=== PATIENT | male | born 1935 | race Caucasian/White ===

== ENCOUNTER 2019-12-29 15:01 | Inpatient (IN) ==
--- NOTE | 2019-12-29 15:21 | Emergency Department Note ---
Impression & Plan SEN (acute kidney injury), Acute hypotension, Weakness, Dizzy Allergies Allergies Allergy/AdvReac Type Severity Reaction Status Date / Time No Known Allergies Allergy Verified 12/29/19 15:49 [id number] Allergy Unknown Unknown Uncoded 12/29/19 15:49 Home Meds Home Medications Medication Instructions Recorded Confirmed aspirin [Aspirin Low Dose] 81 mg PO DAILY 04/15/19 12/29/19 atorvastatin 80 mg PO HS 04/15/19 12/29/19 dorzolamide-timolol 1 drp OPB BID 04/15/19 12/29/19 gabapentin 300 mg PO HS 04/15/19 12/29/19 latanoprost 1 drp OPB HS 04/15/19 12/29/19 lisinopril 5 mg PO PM 04/15/19 12/29/19 metformin 1,000 mg PO QAM 04/15/19 12/29/19 metoprolol succinate 25 mg PO DAILY 04/15/19 12/29/19 [id number] acid-lutein [Centrum 1 tab PO DAILY 04/15/19 12/29/19 Silver] tamsulosin 0.4 mg PO DAILY 04/15/19 12/29/19 cholestyramine (with sugar) 4 g PO BID 12/29/19 12/29/19 ezetimibe 10 mg PO DAILY 12/29/19 12/29/19 metformin 500 mg PO QPM 12/29/19 12/29/19 nitroglycerin 0.4 mg SUBLINGUAL UD 12/29/19 12/29/19 omeprazole 20 mg PO DAILY 12/29/19 12/29/19 ED Provider Note NAME: Shabana MOORE AGE: 84 SEX: M : 1935 ARRIVES VIA: Walk-In INFORMANT: Patient ED PROVIDER(S): Zheng Polanco DO CHIEF COMPLAINT: Weakness and lightheadedness HPI: Patient is an 84-year-old male referred in by his PCP for acute kidney injury. Patient notes that he has not been eating or drinking much for the past week between this past to Thursday. The symptoms started on Thursday with persistent diarrhea about 6-10 times a day that finally resolved this past Thursday night into Thursday. He had some mild abdominal achiness throughout this time but that has since resolved. He notes the diarrhea is gone. He has no belly pain. He does admit to some dizziness and lightheadedness. No chest pain or shortness of breath. No other exacerbating or remitting factors. Denies any recent trips or travel. No cough runny nose or sore throat. ROS: See above HPI for pertinent positives & negatives. A total of 10 systems reviewed and were otherwise negative. PAST MEDICAL HISTORY:See Below PAST SURGICAL HISTORY:See Below FAMILY HISTORY:See Below SOCIAL HISTORY:See Below HOME MEDICATIONS:See Below ALLERGIES:See Below VITALS:See Below PHYSICAL EXAMINATION: GENERAL: Sitting up in bed, alert, well appearing, well nourished, no distress, non-toxic EYE EXAM: normal conjunctiva. OROPHARYNX: no exudate, no erythema, lips, buccal mucosa, and tongue normal and mucous membranes are moist NECK: supple, no nuchal rigidity, no adenopathy, non-tender LUNGS: Clear to auscultation. Normal chest wall mechanics HEART: no murmurs, S1 normal and S2 normal ABDOMEN: abdomen soft, non-tender, normo-active bowel sounds, no masses, no rebound or guarding. BACK: Back is symmetrical on inspection and there is no deformity, no midline tenderness, no CVA tenderness. SKIN: no rashes and no bruising UPPER EXTREMITIES: upper extremities are grossly normal. LOWER EXTREMITIES: No pitting edema. NEURO EXAM: Normal sensorium, cranial nerves II-XII grossly intact, normal speech, no gross weakness of arms, no gross weakness of legs. MEDICAL DECISION MAKING: Patient is an 84-year-old male who was referred in by his PCP for an elevated creatinine. He notes he has been having diarrhea since this past Thursday to Thursday going 6-10 times a day. Not eating or drinking much. He has no belly pain. He is still urinating. Bladder scan performed by myself at bedside shows decompressed bladder. IV was established blood work was obtained. Labs show no significant leukocytosis or anemia. INR was unremarkable. BMP with a creatinine of 8.59. Potassium was appropriate. Glucose was slightly elevated. LFTs bilirubin troponin was negative. Lipase unremarkable. Patient was given 2 L IV fluids. Discussed with the hospitalist admitted for acute kidney injury. Triage Nursing notes reviewed. Prior medical records reviewed Vital Signs: reviewed and remarkable for no significant abnormalities Differential diagnosis: Differential diagnosis includes etiologies such as benign positional vertigo, dehydration, hypovolemia, anemia, tumor, infection, hypoglycemia, electrolyte abnormalities, cardiac sources, intracerebral event, toxicologic, neurological, as well as others were entertained. ER treatment provided: See below Diagnostics interpreted by me: ECG: Sinus rhythm rate 82 Normal axis Normal QTC Inferior Q waves Cardiac Monitoring: Sinus rhythm rate 81 Laboratory studies: As stated above and show below. Imaging studies: Portable AP upright 1 view of the chest shows no focal infiltrate or pneumothorax with likely atelectasis in the lower lobes Consultation(s): Discussed with Radha from [facility] service ED COURSE: Procedures: none Critical Care: None Past Med/Surg History Social History Preferred Language: Kazakh Current Living Situation: Family Feels Safe at Home: Yes Smoking Status: Former smoker Results & Data (ED) Vital Signs Vital Signs - 24 hr 12/29/19 15:05 12/29/19 15:17 12/29/19 15:18 Temperature 36.5 C Temperature Source Oral Pulse Rate 69 67 68 Pulse Rate from SpO2 Sensor Pulse Rhythm Regular Respiratory Rate 20 22 20 Blood Pressure 84/54 L 100/51 L Blood Pressure Mean 64 60 Pulse Oximetry 97 99 Oxygen Delivery Method Room Air Room Air Sepsis Recent Fever Within 48 Hours No Sepsis New/Unexplained Change in Mental Status No Sepsis Action Taken by Nursing No Action Required 12/29/19 15:20 12/29/19 15:30 12/29/19 16:00 Temperature Temperature Source Pulse Rate 66 66 72 Pulse Rate from SpO2 Sensor 66 73 Pulse Rhythm Respiratory Rate 20 23 21 Blood Pressure 110/50 L Blood Pressure Mean 70 Pulse Oximetry 99 96 Oxygen Delivery Method Sepsis Recent Fever Within 48 Hours Sepsis New/Unexplained Change in Mental Status Sepsis Action Taken by Nursing 12/29/19 16:30 12/29/19 17:00 Temperature Temperature Source Pulse Rate 78 83 Pulse Rate from SpO2 Sensor 78 82 Pulse Rhythm Respiratory Rate 24 22 Blood Pressure Blood Pressure Mean Pulse Oximetry 95 98 Oxygen Delivery Method Sepsis Recent Fever Within 48 Hours Sepsis New/Unexplained Change in Mental Status Sepsis Action Taken by Nursing Laboratory Data Result diagrams: 12/29/19 15:25 12/29/19 15:25 Lab Results 12/29/19 12/29/19 12/29/19 Range/Units 15:25 15:25 15:25 WBC 8.89 (4.8-10.8) K/uL RBC 4.41 L (4.7-6.1) M/uL Hgb 14.0 (14.0-18.0) g/dL Hct 41.6 L (42-52) % MCV 94.3 (80-100) fL MCH 31.7 (25-34) pg MCHC 33.7 (32-36) g/dL RDW Std Deviation 45.1 (36.4-46.3) fL RDW Coeff of Deion 13.0 (11.5-14.5) % Plt Count 275 (130-400) K/uL MPV 9.7 (7.4-10.4) fL Immature Gran % (Auto) 0.3 % Neut % (Auto) 64.2 % Lymph % (Auto) 19.0 % [place] % (Auto) 9.7 % Eos % (Auto) 6.0 % Baso % (Auto) 0.8 % Immature Gran # (Auto) 0.03 H (0.00-0.02) K/uL Neut # (Auto) 5.71 (1.4-6.5) K/uL Lymph # (Auto) 1.69 (1.2-3.4) K/uL [place] # (Auto) 0.86 H (0.11-0.59) K/uL Eos # (Auto) 0.53 H (0-0.5) K/uL Baso # (Auto) 0.07 (0-0.2) K/uL PT 11.8 (9.0-12.0) Seconds INR 1.1 (0.9-1.1) APTT 26.9 (21.0-31.0) Seconds PTT Ratio 1.0 VBG pH (7.36-7.41) VBG pCO2 (38-50) mmHg VBG pO2 mmHg VBG HCO3 mmol/L VBG O2 Saturation % VBG Base Excess mEq/L Barometric Pressure mm/Hg Sodium 137 (136-145) mmol/L Potassium 4.5 (3.5-5.1) mmol/L Chloride 107 (98-107) mmol/L Carbon Dioxide 20 L (21-32) mmol/L Anion Gap 10.0 (3-11) BUN 57 H (7-18) mg/dl Creatinine 8.59 H* (0.6-1.4) mg/dl Est Cr Clr Drug Dosing 6.2 ml/min Est GFR ( Amer) 6.0 Est GFR (Non-Af Amer) 5.2 BUN/Creatinine Ratio 6.7 L (10-20) Glucose 135 H (70-99) mg/dl Calcium 8.9 (8.5-10.1) mg/dl Phosphorus (2.5-4.9) mg/dl Magnesium (1.8-2.4) mg/dl Total Bilirubin 0.6 (0.2-1) mg/dl AST 19 (15-37) U/L ALT 27 (12-78) U/L Alkaline Phosphatase 108 (45-117) U/L Troponin I < 0.015 (0-0.045) ng/ml Total Protein 6.8 (6.4-8.2) gm/dl Albumin 3.0 L (3.4-5.0) gm/dl Globulin 3.8 (2.5-4.0) gm/dl Albumin/Globulin Ratio 0.8 L (0.9-2) Lipase 181 (73-393) U/L 12/29/19 12/29/19 Range/Units 15:25 17:26 WBC (4.8-10.8) K/uL RBC (4.7-6.1) M/uL Hgb (14.0-18.0) g/dL Hct (42-52) % MCV (80-100) fL MCH (25-34) pg MCHC (32-36) g/dL RDW Std Deviation (36.4-46.3) fL RDW Coeff of Deion (11.5-14.5) % Plt Count (130-400) K/uL MPV (7.4-10.4) fL Immature Gran % (Auto) % Neut % (Auto) % Lymph % (Auto) % [place] % (Auto) % Eos % (Auto) % Baso % (Auto) % Immature Gran # (Auto) (0.00-0.02) K/uL Neut # (Auto) (1.4-6.5) K/uL Lymph # (Auto) (1.2-3.4) K/uL [place] # (Auto) (0.11-0.59) K/uL Eos # (Auto) (0-0.5) K/uL Baso # (Auto) (0-0.2) K/uL PT (9.0-12.0) Seconds INR (0.9-1.1) APTT (21.0-31.0) Seconds PTT Ratio VBG pH 7.28 L (7.36-7.41) VBG pCO2 37 L (38-50) mmHg VBG pO2 22 mmHg VBG HCO3 17 mmol/L VBG O2 Saturation < 60.0 % VBG Base Excess -9.4 mEq/L Barometric Pressure 726.8 mm/Hg Sodium (136-145) mmol/L Potassium (3.5-5.1) mmol/L Chloride (98-107) mmol/L Carbon Dioxide (21-32) mmol/L Anion Gap (3-11) BUN (7-18) mg/dl Creatinine (0.6-1.4) mg/dl Est Cr Clr Drug Dosing ml/min Est GFR ( Amer) Est GFR (Non-Af Amer) BUN/Creatinine Ratio (10-20) Glucose (70-99) mg/dl Calcium (8.5-10.1) mg/dl Phosphorus 4.9 (2.5-4.9) mg/dl Magnesium 1.6 L (1.8-2.4) mg/dl Total Bilirubin (0.2-1) mg/dl AST (15-37) U/L ALT (12-78) U/L Alkaline Phosphatase (45-117) U/L Troponin I (0-0.045) ng/ml Total Protein (6.4-8.2) gm/dl Albumin (3.4-5.0) gm/dl Globulin (2.5-4.0) gm/dl Albumin/Globulin Ratio (0.9-2) Lipase (73-393) U/L Administered Medications Discontinued Medications Sodium Chloride (Nss 1000ml) 2,000 mls @ 999 mls/hr IV .Q2H1M DIEGO Stop: 12/29/19 17:30 Last Infusion: 12/29/19 17:33 Dose: 0 mls/hr Documented by: [id number] Admin: 12/29/19 15:31 Dose: 999 mls/hr Documented by: [id number] Discharge Plan Visit Data Chief Complaint: Abnormal Labs/Diagnostic Testing Stated Complaint: KIDNEY PROBLEMS, SENT BY FOR MEDS ED Provider: Zheng Polanco Discharge Problem: SEN (acute kidney injury), Acute hypotension, Weakness, Dizzy Forms Stand Alone Forms: My [facility] Prescriptions Prescriptions: No Action latanoprost 0.005 % drops 1 drp OPB HS RF: 0 metformin 500 mg tablet 1,000 mg PO QAM RF: 0 atorvastatin 80 mg tablet 80 mg PO HS RF: 0 aspirin [Aspirin Low Dose] 81 mg Tablet,Delayed Release (Dr/Ec) 81 mg PO DAILY RF: 0 tamsulosin 0.4 mg capsule 0.4 mg PO DAILY RF: 0 dorzolamide-timolol 22.3-6.8 mg/mL drops 1 drp OPB BID RF: 0 lisinopril 5 mg tablet 5 mg PO PM RF: 0 gabapentin 100 mg capsule 300 mg PO HS RF: 0 metoprolol succinate 25 mg tablet extended release 24 hr 25 mg PO DAILY RF: 0 Centrum Silver 400-250 mcg Tablet,Chewable 1 tab PO DAILY RF: 0 metformin 500 mg Tablet 500 mg PO QPM RF: 0 omeprazole 20 mg capsule,delayed release(DR/EC) 20 mg PO DAILY RF: 0 ezetimibe 10 mg tablet 10 mg PO DAILY RF: 0 nitroglycerin 0.4 mg tablet, sublingual 0.4 mg sublingual UD RF: 0 cholestyramine (with sugar) 4 gram powder in packet 4 g PO BID RF: 0
[2019-12-29] MEDS ORDERED: SODIUM CHLORIDE 0.9% 1000ML 2,000 ML IV SCH (15:30)
[2019-12-29 15:34] LABS: Basophils # (auto) 0.07 K/uL (0-0.2); Basophils % (auto) 0.8 %; Eosinophils # (auto) 0.53 K/uL (0-0.5); Hematocrit (blood only) 41.6 % (42-52); Immature Granulocytes # (auto) 0.03 K/uL (0.00-0.02); Immature Granulocytes % (auto) 0.3 %; Lymphocytes # (auto) 1.69 K/uL (1.2-3.4); Mean Corpuscular Hemoglobin 31.7 pg (25-34); Mean Corpuscular Hgb Conc 33.7 g/dL (32-36); Mean Corpuscular Volume 94.3 fL (80-100); Mean Platelet Volume 9.7 fL (7.4-10.4); Monocytes # (auto) 0.86 K/uL (0.11-0.59); Monocytes % (auto) 9.7 %; Neutrophils # (auto) 5.71 K/uL (1.4-6.5); Neutrophils % (auto) 64.2 %; Platelet Count 275 K/uL (130-400); RDW Standard Deviation 45.1 fL (36.4-46.3); Red Blood Count 4.41 M/uL (4.7-6.1); White Blood Count 8.89 K/uL (4.8-10.8)
[2019-12-29 15:45] LABS: INR 1.1 (0.9-1.1); Partial Thromboplastin Time 26.9 Seconds (21.0-31.0); Prothrombin Time 11.8 Seconds (9.0-12.0)
--- NOTE | 2019-12-29 15:51 | XRay Report ---
SINGLE VIEW CHEST CLINICAL HISTORY: Atypical chest pain. FINDINGS: An AP, portable, upright chest radiograph is compared to study dated 04/15/2019. The examina tion is degraded by portable technique and patient rotation. The heart is mildly enlarged noting at herosclerotic calcification of the thoracic aorta. Chronic interstitial thickening is similar to prev ious. Foci of scarring/atelectasis are noted in both lungs. Dependent airspace opacities are present at both lung bases. No large pleural effusion or pneumothorax is seen. The skeletal structures are os teopenic. The bony thorax is grossly intact. IMPRESSION: 1. Cardiomegaly without radiographic evidence of congestive failure. 2. There are bibasilar airspace opacities which likely represent scarring/atelectasis. Correlate clin ically for evidence of a superimposed infectious/inflammatory pneumonitis. ACT 112: Negative or not required by law. Electronically signed by: Anibal Todd M.D. 12/29/2019 3:49 PM
--- NOTE | 2019-12-29 15:52 | Electrocardiogram Report ---
Test Reason : Blood Pressure : / mmHG Vent. 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
[2019-12-29 16:01] LABS: Alanine Aminotransferase 27 U/L (12-78); Albumin Globulin Ratio 0.8 (0.9-2); Alkaline Phosphatase 108 U/L (45-117); Aspartate Aminotransferase 19 U/L (15-37); BUN Creatinine Ratio 6.7 (10-20); Bilirubin,Total 0.6 mg/dl (0.2-1); Blood Urea Nitrogen 57 mg/dl (7-18); Calcium 8.9 mg/dl (8.5-10.1); Carbon Dioxide 20 mmol/L (21-32); Chloride 107 mmol/L (98-107); Creatinine Clr Calc Pharmacy 6.2 ml/min; Est GFR (Non-African American) 5.2; Globulin 3.8 gm/dl (2.5-4.0); Glucose 135 mg/dl (70-99); Lipase 181 U/L (73-393); Potassium 4.5 mmol/L (3.5-5.1); Sodium 137 mmol/L (136-145); Total Protein 6.8 gm/dl (6.4-8.2); Troponin I < 0.015 ng/ml (0-0.045)
[2019-12-29 17:10] LABS: Magnesium 1.6 mg/dl (1.8-2.4); Phosphorus 4.9 mg/dl (2.5-4.9)
[2019-12-29 17:36] LABS: Base Excess VBG -9.4 mEq/L; HCO3 VBG 17 mmol/L; Oxygen Saturation VBG < 60.0 %; PCO2 VBG 37 mmHg (38-50); PO2 VBG 22 mmHg; pH VBG 7.28 (7.36-7.41)
--- NOTE | 2019-12-29 17:50 | History & Physical Report ---
Date of Service December 29, 2019 Assessment & Plan (1) SEN (acute kidney injury): Pt is 84 y/o M with PMH CKD III, HTN, dyslipidemia, CAD, DM II, BPH, GERD presented to ER for abnormal renal functions. Patient with diarrhea x1 week. 12/27/2019 outpatient labs with BUN: 30, Cr: 3.7, GFR 14. Repeat labs today 12/29/2019 with BUN: 54, Cr: 8.4, GFR 5.3 (03/2019: BUN: 17, Cr: 1.1, GFR>60) In ER pt afebrile, P: 69, R: 20, BP: 84/54 up to 100/51, 97% on RA. No leukocytosis. K: 4.5, BUN: 57, Cr: 8.5, GFR: 5.2 SEN on CKD III in setting of diarrhea x1 week, decreased oral intake, dehydration, metformin and lisinopril use -Obtain VBG -Obtain renal US -Obtain urinalysis -Pt clinically dehydrated on exam -In ER given 2L NSS -IVF -Monitor I's and O's -Hold metformin, lisinopril, gabapentin -Avoid other nephrotoxic agents -Monitor renal functions -Nephrology consult, Dr John aware (2) Diarrhea: Diarrhea x1 week. Was started on Questran twice daily 2 days ago with no further episodes of diarrhea. No recent antibiotic use, recent travel, recent ill contacts. No fever, chills, abdominal pain -Monitor, if recurrent diarrhea obtain C. difficile, stool studies -Clear liquid diet for now (3) Type 2 diabetes mellitus: A1c: 6.3 on 10/03/2019 -Hold metformin -NovoLog sliding scale per protocol -A1c in a.m. (4) HTN (hypertension): Initially hypotensive in ER 84/54 up to 100/50 after 2 liters NSS -Monitor BP -Hold lisinopril as above -Continue metoprolol with holding parameters (5) Dyslipidemia: -Continue atorvastatin, Zetia (6) ASCVD (arteriosclerotic cardiovascular disease): History [place] status post PCI 1997. No chest pain. EKG without acute changes -Continue aspirin, atorvastatin, metoprolol (7) BPH (benign prostatic hyperplasia): -Hold Flomax for now with creatinine clearance of 6 DVT Prophylaxis -Heparin SQ Conditional code- wants chest compressions but no intubation or mechanical ventilation as per discussion with pt Follows with Dr Rodriguez for routine care Pt was seen and care coordinated with Dr Scott. See addendum History of Present Illness Chief Complaint: Abnormal renal functions Primary Care Provider: Jono Rodriguez MD Pt is 84 y/o M with PMH CKD III, HTN, dyslipidemia, CAD, DM II, BPH, GERD presented to ER for abnormal renal functions. Patient with diarrhea x1 week. Reports had at least 3 to sometimes greater than 6 episodes diarrhea a day. He has had decreased oral intake. Was seen at PCPs office 12/27/2019 and patient wa s started on Questran twice daily and had outpatient labs with BUN: 30, Cr: 3.7, GFR 14. Patient had repeat labs today 12/29/2019 with BUN: 54, Cr: 8.4, GFR 5.3 and patient was referred to ER for further evaluation. Patient states that he did not have any diarrhea yesterday or today. States that yesterday he had a little ice tea, [place]. Today he had 1 can of diet soda and a half a cup of coffee. Had some lightheadedness this morning with standing. Patient states last week had some abdominal bloating and lower abdominal discomfort however that has since resolved. Reports that has been having decreased urination, patient unsure if he urinated today. Denies any vomiting, fever, chills. Denies any recent antibiotic use, recent travel, ill contacts. Has municipal water supply. Denies diaphoresis, hematochezia, melena, JARQUIN, syncope, vision changes, neck pain, CP, SOB, orthopnea, palpitations, cough, sore throat, choking, otalgia, rhinorrhea, paresthesias, weakness, extremity weakness, extremity edema, rashes, dysuria, hematuria. Allergies Allergy/AdvReac Type Severity Reaction Status Date / Time No Known Allergies Allergy Verified 12/29/19 15:49 Home Medications Home Medications Medication Instructions Recorded Confirmed Type aspirin [Aspirin Low Dose] 81 mg PO DAILY 04/15/19 12/29/19 History atorvastatin 80 mg PO HS 04/15/19 12/29/19 History dorzolamide-timolol 1 drp OPB BID 04/15/19 12/29/19 History gabapentin 300 mg PO HS 04/15/19 12/29/19 History latanoprost 1 drp OPB HS 04/15/19 12/29/19 History lisinopril 5 mg PO PM 04/15/19 12/29/19 History metformin 1,000 mg PO QAM 04/15/19 12/29/19 History metoprolol succinate 25 mg PO DAILY 04/15/19 12/29/19 History [id number] acid-lutein [Centrum 1 tab PO DAILY 04/15/19 12/29/19 History Silver] tamsulosin 0.4 mg PO DAILY 04/15/19 12/29/19 History cholestyramine (with sugar) 4 g PO BID 12/29/19 12/29/19 History ezetimibe 10 mg PO DAILY 12/29/19 12/29/19 History metformin 500 mg PO QPM 12/29/19 12/29/19 History nitroglycerin 0.4 mg SUBLINGUAL UD 12/29/19 12/29/19 History omeprazole 20 mg PO DAILY 12/29/19 12/29/19 History Past Med/Surg History Medical History (Updated 12/29/19 @ 18:10 by Carlita Salguero PA-C) ASCVD (arteriosclerotic cardiovascular disease) BPH (benign prostatic hyperplasia) Chronic rhinitis (Chronic) CKD (chronic kidney disease), stage III Dyslipidemia GERD (gastroesophageal reflux disease) HTN (hypertension) Old [place] (myocardial infarction) Type 2 diabetes mellitus Surgical History (Updated 12/29/19 @ 17:59 by Carlita Salguero PA-C) History of angioplasty History of cataract surgery History of cholecystectomy Hx of tonsillectomy Family History (Updated 12/29/19 @ 18:00 by Carlita Salguero PA-C) Other Coronary heart disease Diabetes Social History (Updated 12/29/19 @ 18:00 by Carlita Salguero PA-C) Preferred Language: Pashto Current Living Situation: Family Current Living Situation Comment: Lives with sister Feels Safe at Home: Yes Smoking Status: Former smoker Hx Alcohol Use: No Hx Substance Use: No Review of Systems Review of Systems: All systems reviewed & are unremarkable except as noted in HPI & below Physical Exam Physical Exam: General: no distress, WDWN Head: normocephalic, atraumatic Eyes: PERRL, EOM's intact, conjunctiva non-injected, anicteric ENT: normal inspection external ears, nose, mucous membranes dry Neck: supple, trachea midline, non-tender Lungs: clear, no respiratory distress, no wheezing/rhonchi/rales CV: RRR, no murmur, no pretibial edema Abd: normal BS, soft, non-tender Ext: no cyanosis, no calf tenderness Neuro: A&O x 3, no focal deficits noted, normal affect Skin: warm, dry Results & Data Results & Data ([facility]) Vital Signs (Past 12 Hours) Vital Signs Temp Pulse Resp BP Pulse Ox 12/29/19 17:00 83 22 98 12/29/19 16:30 78 24 95 12/29/19 16:00 72 21 110/50 L 96 12/29/19 15:30 66 23 99 12/29/19 15:20 66 20 12/29/19 15:18 68 20 99 12/29/19 15:17 67 22 100/51 L 12/29/19 15:05 36.5 C 69 20 84/54 L 97 Laboratory Results Short CBC 12/29/19 12/29/19 Range/Units 15:25 15:25 WBC 8.89 (4.8-10.8) K/uL Hgb 14.0 (14.0-18.0) g/dL Hct 41.6 L (42-52) % Plt Count 275 (130-400) K/uL Magnesium 1.6 L (1.8-2.4) mg/dl BMP 12/29/19 15:25 Sodium 137 Potassium 4.5 Chloride 107 Carbon Dioxide 20 L BUN 57 H Creatinine 8.59 H* Glucose 135 H Calcium 8.9 Cardiac Enzymes 12/29/19 Range/Units 15:25 Troponin I < 0.015 (0-0.045) ng/ml Liver Function 12/29/19 Range/Units 15:25 Total Bilirubin 0.6 (0.2-1) mg/dl AST 19 (15-37) U/L ALT 27 (12-78) U/L Alkaline Phosphatase 108 (45-117) U/L Albumin 3.0 L (3.4-5.0) gm/dl Diagnostic Findings CXR: IMPRESSION: 1. Cardiomegaly without radiographic evidence of congestive failure. 2. There are bibasilar airspace opacities which likely represent scarring/atelectasis. Correlate clinically for evidence of a superimposed infectious/inflammatory pneumonitis. ECG Rate (beats per minute): 65 Rhythm: sinus rhythm Findings: + Q waves (Inferior) Code Status & VTE Plan VTE Prophylaxis Plan VTE Prophylaxis will be ordered: Yes Supervising Physician Co-Signing Physician Notes Attending Addendum: care coordinated with GRETA Dewitt please refer to her notes for full details, I agree with her notes patient seen and examined, records reviewed by myself as well on exam, patient seen resting in bed, comfortable denies SOB, chest pain, palpitations, dizziness no abdominal pain no diarrhea since admission no other symptoms VS noted and reviewed oriented x3, not in distress, speaks in sentences with no effort nor accessory muscle use normal rate, regular rhythm, no murmurs clear breath sounds bilaterally non distended, soft, nontender no bipedal edema, erythema, warmth no neuro deficits WBC 8.8 Hg 14.0 Crea 8.59 Renal US: 1. No hydronephrosis. 2. Enlarged prostate with bladder wall thickening. ASSESSMENT AND PLAN> ACUTE RENAL FAILURE ON CKD 3 likely Prerenal Etiology from Dehydration secondary to Diarrhea in the setting of Metformin, Lisinopril - IV NSS hold Metformin and Lisinopril Nephro consulted DIARRHEA -resolved monitor closely other diagnoses and plan of care as per GRETA Scott MD
[2019-12-29] MEDS ORDERED: GLUCOSE 40% GEL 15 GM TUBE PO PRN (18:41)
[2019-12-29] MEDS ORDERED: GLUCAGON FOR INJ 1 MG VIAL SQ PRN (18:41)
[2019-12-29] MEDS ORDERED: NITROGLYCERIN SL 0.4 MG/TAB TAB SL PRN (18:41)
[2019-12-29] MEDS ORDERED: ACETAMINOPHEN 325 MG TAB PO PRN (18:41)
[2019-12-29] MEDS ORDERED: GLUCOSE 10 TABS/TUBE PO PRN (18:41)
[2019-12-29] MEDS ORDERED: CARBOHYDRATES FOR HYPOGLYCEMIA PO PRN (18:41)
[2019-12-29] MEDS ORDERED: DEXTROSE 50% 50 ML SYRINGE IV PRN (18:41)
--- NOTE | 2019-12-29 18:43 | Ultrasound Report ---
RENAL ULTRASOUND CLINICAL HISTORY: Evaluate for obstruction. COMPARISON STUDY: None. TECHNIQUE: Sonography of the kidneys and the urinary bladder was performed. FINDINGS: This exam is mildly compromised by suboptimal penetration. The right kidney measures 9.6 x 6.1 x 5.8 cm and the left measures 11.2 x 6.1 x 5.9 cm. There is no hydronephrosis. The kidneys are e chogenic. A 1.1 cm left renal cyst is present. The prostate is enlarged. The left ureteral jet was no t visualized. Bladder suboptimally assessed given underdistention. Bladder wall thickening is noted. IMPRESSION: 1. No hydronephrosis. 2. Enlarged prostate with bladder wall thickening. ACT 112: Negative or not required by law. Electronically signed by: Leopoldo Burns M.D. 12/29/2019 6:42 PM
[2019-12-29] MEDS ORDERED: MAGNESIUM SULFATE / D5W 1 GM/100 ML BAG IV ONE (19:00)
[2019-12-29] MEDS: SODIUM CHLORIDE 0.9% 1000ML 1,000 ML IV SCH (19:37)
[2019-12-29] MEDS: ATORVASTATIN 40 MG TAB PO SCH (20:30)
[2019-12-29] MEDS: LATANOPROST 0.005% OP SOLN 2.5 ML BTL OPB SCH (20:30)
[2019-12-29] MEDS: INSULIN ASPART 100 UNITS/ML 3 ML PEN SC SCH (21:35)
[2019-12-29] MEDS ORDERED: HEPARIN SOD 5,000 UNIT/0.5 ML VIAL SQ SCH (22:00)
[2019-12-29 22:41] LABS: Appearance Urine Cloudy (Clear); Bacteria Urine Automated Negative (Negative); Bilirubin Urine Negative (Negative); Blood Urine Trace (Negative); Color Urine Yellow; Epithelial Cell Urine Auto >30 /lpf (0-5); Glucose Urine UA Negative (Negative); Ketones Urine Negative (Negative); Leukocyte Esterase Urine 3+ (Negative); Nitrite Urine Negative (Negative); Protein Urine 1+ (Negative); Specific Gravity Urine 1.019 (1.000-1.030); Urobilinogen Urine Negative (Negative); WBC Urine Automated >30 /hpf (0-5)
[2019-12-29 23:01] LABS: RBC Urine Automated 0-4 /hpf (0-4)
[2019-12-29 23:04] LABS: Amorphous Sediment Urine Present (None Prsent)
[2019-12-29] MEDS ORDERED: SODIUM CHLORIDE 0.9% 500 ML IV SCH (23:15)
[2019-12-30] MEDS: cefTRIAXone SODIUM 1,000 MG in DEXTROSE 5% 50 ML IV SCH (04:18)
[2019-12-30 05:48] LABS: Hematocrit (blood only) 36.2 % (42-52); Hemoglobin 11.9 g/dL (14.0-18.0); Mean Corpuscular Hgb Conc 32.9 g/dL (32-36); Mean Corpuscular Volume 94.3 fL (80-100); Mean Platelet Volume 9.6 fL (7.4-10.4); Platelet Count 198 K/uL (130-400); RDW Standard Deviation 45.3 fL (36.4-46.3); Red Blood Count 3.84 M/uL (4.7-6.1); White Blood Count 6.28 K/uL (4.8-10.8)
[2019-12-30 06:02] LABS: Estimated Average Glucose 134 mg/dl; Hemoglobin A1C 6.3 % (4.5-5.6)
[2019-12-30 06:33] LABS: BUN Creatinine Ratio 7.1 (10-20); Calcium 7.3 mg/dl (8.5-10.1); Creatinine Clr Calc Pharmacy 6.4 ml/min; Est GFR (African American) 6.5; Est GFR (Non-African American) 5.6; Magnesium 1.7 mg/dl (1.8-2.4); Phosphorus 4.3 mg/dl (2.5-4.9); Potassium 4.1 mmol/L (3.5-5.1)
[2019-12-30] MEDS: ASPIRIN 81 MG ECTAB PO SCH (08:25)
[2019-12-30] MEDS: EZETIMIBE 10 MG TABLET PO SCH (08:25)
[2019-12-30] MEDS: METOPROLOL SUCC 25MG EXT REL TAB PO SCH (08:26)
[2019-12-30] MEDS: HEPARIN SOD 5,000 UNIT/0.5 ML VIAL SQ SCH ×2 (08:26→20:26)
[2019-12-30] MEDS: INSULIN ASPART 100 UNITS/ML 3 ML PEN SC SCH ×4 (08:27→20:27)
[2019-12-30] MEDS: SODIUM CHLORIDE 0.9% 1000ML 1,000 ML IV SCH (09:09)
--- NOTE | 2019-12-30 10:22 | Nephrology Consultation ---
Date of Consultation December 30, 2019 Assessment & Plan (1) SEN (acute kidney injury): Patient with acute kidney injury likely due to ischemic ATN in setting of diarrhea for a week. Urinalysis showing over 30 WBCs and granular casts. Creatinine stable at 8 today. No indication for dialysis at the moment. But cannot rule out need for dialysis during this admission. Patient is agreeable t o dialysis if needed. I am optimistic that this should recover. -We will check urine culture -Postvoid bladder scan and if patient is retaining more than 200 mL, consult urology for Murphy catheter placement as patient has a tight foreskin. -Daily BMP -Agree with holding lisinopril and avoid NSAIDs. (2) BPH (benign prostatic hyperplasia): Patient with BPH and renal ultrasound. He will need follow-up with urology outpatient. No hydronephrosis on ultrasound. (3) Diarrhea: Improving with supportive management. No RBCs in the urine or signs of hemolysis to suggest HUS. Continue supportive management. (4) Metabolic acidosis: Due to acute kidney injury. We will give Ringer's lactate instead of normal saline at the same rate. If acidosis is worse tomorrow will change to isotonic bicarbonate infusion. History of Present Illness Reason for Consultation: Acute kidney injury Requesting Physician: Ada Jones DO Attending Physician: dAa Jones DO History of Present Illness This is 84-year-old male with history of type 2 diabetes, coronary disease, hypertension, hyperlipidemia: BPH and normal renal function at baseline with a creatinine of 0.8 in April 2019 was admitted on 12/29/2019 with diarrhea for 1 week found to have acute kidney injury with a creatinine of 8.5. Patient reported 5-6 bowel movements every day for the past 1 week. He was treated with Imodium by Dr. Rodriguez. No vomiting. He denied NSAID use. He does have dysuria now which started since admission. In the emergency room he was found to be hypotensive with a systolic blood pressure in the 80s. He has received up to 4 L of normal saline. Lisinopril was held. His creatinine is 80 this morning with a bicarb of 16. He denies any shortness of breath or cough. He has been on liquid diet. Renal ultrasound showed 9.6 cm right kidney, 11.2 cm left kidney, 1.1 cm left renal cyst and enlarged prostate. Patient is anuric with an 160 mL of urine in the past 24 hours. Allergies Allergy/AdvReac Type Severity Reaction Status Date / Time No Known Allergies Allergy Verified 12/29/19 15:49 Home Medications Home Medications Medication Instructions Recorded Confirmed Type aspirin [Aspirin Low Dose] 81 mg PO DAILY 04/15/19 12/29/19 History atorvastatin 80 mg PO HS 04/15/19 12/29/19 History dorzolamide-timolol 1 drp OPB BID 04/15/19 12/29/19 History gabapentin 300 mg PO HS 04/15/19 12/29/19 History latanoprost 1 drp OPB HS 04/15/19 12/29/19 History lisinopril 5 mg PO PM 04/15/19 12/29/19 History metformin 1,000 mg PO QAM 04/15/19 12/29/19 History metoprolol succinate 25 mg PO DAILY 04/15/19 12/29/19 History [id number] acid-lutein [Centrum 1 tab PO DAILY 04/15/19 12/29/19 History Silver] tamsulosin 0.4 mg PO DAILY 04/15/19 12/29/19 History cholestyramine (with sugar) 4 g PO BID 12/29/19 12/29/19 History ezetimibe 10 mg PO DAILY 12/29/19 12/29/19 History metformin 500 mg PO QPM 12/29/19 12/29/19 History nitroglycerin 0.4 mg SUBLINGUAL UD 12/29/19 12/29/19 History omeprazole 20 mg PO DAILY 12/29/19 12/29/19 History Patient History Medical History (Updated 12/30/19 @ 10:18 by Terrence John MD) ASCVD (arteriosclerotic cardiovascular disease) BPH (benign prostatic hyperplasia) Chronic rhinitis (Chronic) CKD (chronic kidney disease), stage III Dyslipidemia GERD (gastroesophageal reflux disease) HTN (hypertension) Old NH (myocardial infarction) Type 2 diabetes mellitus Surgical History (Updated 12/29/19 @ 17:59 by Carlita Salguero PA-C) History of angioplasty History of cataract surgery History of cholecystectomy Hx of tonsillectomy Family History (Updated 12/29/19 @ 18:00 by Carlita Salguero PA-C) Other Coronary heart disease Diabetes Social History (Updated 12/29/19 @ 18:00 by Carlita Salguero PA-C) Preferred Language: [place] Citizen 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 Ability: Effective 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: No Beliefs That Will Affect Care: None Current Living Situation: Other Current Living Situation Comment: lives with sister Other Information That Helps Us Care for You: No Feels Safe at Home: Yes Safety Concerns: Feels Safe At This Time Smoking Status: Former smoker Do You Dip or Chew Tobacco: No ; Second Hand Exposure: No ; Tobacco Cessation Education Requested by Patient: No Hx Alcohol Use: No Hx Substance Use: No Review of Systems Review of Systems: All systems reviewed & are unremarkable except as noted in HPI & below Physical Exam Physical Exam: General exam: Appears comfortable, no acute distress HEENT: Pupils are equal and reactive to light Neck: No JVD, neck is supple trachea is midline Respiratory system: Clear breath sounds bilaterally. Gastrointestinal: Abdomen is soft, non distended, non tender, bowel sounds are present CVS: Regular rate and rhythm. No murmurs, rubs or gallops Musculoskeletal: No joint or muscle tenderness Extremities: Non tender, no edema, peripheral pulses are present Neuro: Oriented, no tremors, no focal neurological deficits Skin: No rashes Genitourinary: Tight foreskin, unable to retract skin due to pain. Results & Data Vital Signs (Past 12 Hours) Vital Signs Temp Pulse Pulse Resp BP Pulse Ox 12/30/19 08:00 36.4 C L 85 18 98/62 L 94 12/30/19 07:13 85 12/30/19 03:48 36.5 C 87 18 100/64 94 12/29/19 23:45 89 Laboratory Results 12/30/19 05:21 12/29/19 12/29/19 12/29/19 15:25 15:25 15:25 WBC 8.89 RBC 4.41 L MCV 94.3 MCH 31.7 MCHC 33.7 RDW Std Deviation 45.1 RDW Coeff of Deion 13.0 Plt Count 275 MPV 9.7 Phosphorus 4.9 Albumin 3.0 L 12/30/19 12/30/19 05:21 05:21 WBC 6.28 RBC 3.84 L MCV 94.3 MCH 31.0 MCHC 32.9 RDW Std Deviation 45.3 RDW Coeff of Deion 13.0 Plt Count 198 MPV 9.6 Phosphorus 4.3 Albumin
[2019-12-30] MEDS: MAGNESIUM SULFATE / D5W 1 GM/100 ML BAG IV SCH ×2 (10:45→12:32)
[2019-12-30 12:22] LABS: Creatinine Urine Random 58.6 mg/dl; Potassium Random Urine 7.6 mmol/L; Protein Creatinine Ratio Urine 0.8 (0-0.2); Total Protein Urine Random 48.7 mg/dl (0-11.9)
[2019-12-30] MEDS: LACTATED RINGER'S 1,000 ML IV SCH ×2 (13:46→21:58)
--- NOTE | 2019-12-30 13:46 | Hospitalist Progress Note ---
Date of Service December 30, 2019 Assessment & Plan (1) SEN (acute kidney injury): Etiology unclear but likely ATN and/or dehydration 2/2 recent prolonged diarrheal illness per Nephro. Pt is hypotensive and clinical picture is suggestive of him being hypovolemic. Cont IVF and switch to LR. Trend BMP. Urine studies pending. +dysuria and pyuria so urine culture pending and covered empirically with Rocephin. No Pino can be placed, however, he is not incontinent and we care able to track strict I/Os and he is not retaining urine at this point despite poor UOP. (2) Diarrhea: Recent diarrheal illness for 1 week of uncertain etiology. No recent antibiotics or known sick contacts. Afebrile and no reported abdominal pain. Tolerating PO. Stool culture pending. (3) Type 2 diabetes mellitus: At goal, controlled per A1C. Metformin on hold and should probably be discontinued at discharge with kidney function. Cont insulin while hospitalized. (4) HTN (hypertension): hypotensive, cont IVF and holding lisinopril. Likely related to hypovolemic state. (5) ASCVD (arteriosclerotic cardiovascular disease): History MT status post PCI 1997. No chest pain. EKG without acute changes -Continue aspirin, atorvastatin, metoprolol per home regimen (6) BPH (benign prostatic hyperplasia): -Hold Flomax for low GFR (7) DVT prophylaxis: Heparin Conditional Code Dispo-cont hospitalization throughout the week. Discussed the care plan with his sister by phone. 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 No clear etiology of diarrhea-no sick contacts, no recent abx use No abd pain, fevers or chills Tolerating PO well Oliguric but no urinary retention on bladder scan which is 50cc consistently +new dysuria in past 24 hours pino cannot be placed because of anatomic abnormalities, however, no urinary retention and we are able to collect urine (no incontinence) Review of Systems Review of Systems: All systems reviewed & are unremarkable except as noted in Subjective Physical Exam Physical Exam: CONSTITUTIONAL: WNWD, vitals as above, generally well- appearing EYES: normal conjunctivae, no scleral icterus ENT: external ear and nose normal, oropharynx clear RESPIRATORY: clear to auscultation bilaterally, no crackles, rales or wheezes, normal respiratory effort CARDIOVASCULAR: regular rate and rhythm, S1 and 2 heard without murmurs, gallops or rubs, no JVD, no peripheral edema GASTROINTESTINAL: normal bowel sounds, soft, nontender, nondistended MUSCULOSKELETAL: strength 5/5 throughout, head is normocephalic and atraumatic SKIN: warm and dry NEUROLOGIC: CN 2-12 grossly intact, no sensory deficit, normal cognition, normal speech, no gross focal deficits. PSYCHIATRIC: alert cooperative and oriented to person, place and time. Results & Data Results & Data ([facility]) Vital Signs (Past 12 Hours) Vital Signs Temp Pulse Pulse Resp BP Pulse Ox 12/30/19 12:00 36.3 C L 68 18 102/56 L 97 12/30/19 08:00 36.4 C L 85 18 98/62 L 94 12/30/19 07:13 85 12/30/19 03:48 36.5 C 87 18 100/64 94 Laboratory Results Short CBC 12/29/19 12/30/19 Range/Units 15:25 05:21 WBC 8.89 6.28 (4.8-10.8) K/uL Hgb 14.0 11.9 L (14.0-18.0) g/dL Hct 41.6 L 36.2 L (42-52) % Plt Count 275 198 (130-400) K/uL BMP 12/29/19 12/30/19 15:25 05:21 Sodium 137 139 Potassium 4.5 4.1 Chloride 107 113 H Carbon Dioxide 20 L 16 L BUN 57 H 57 H Creatinine 8.59 H* 8.08 H* D Glucose 135 H 97 Calcium 8.9 7.3 L D Cardiac Enzymes 12/29/19 Range/Units 15:25 Troponin I < 0.015 (0-0.045) ng/ml Liver Function 12/29/19 Range/Units 15:25 Total Bilirubin 0.6 (0.2-1) mg/dl AST 19 (15-37) U/L ALT 27 (12-78) U/L Alkaline Phosphatase 108 (45-117) U/L Albumin 3.0 L (3.4-5.0) gm/dl Urine 03/26/20 Range/Units 22:30 Urine Color Yellow Urine Appearance Cloudy A (Clear) Urine pH 5.0 (4.5-7.5) Ur Specific [place] 1.019 (1.000-1.030) Urine Protein 1+ H (Negative) Urine Glucose (UA) Negative (Negative)
[2019-12-30] MEDS: ATORVASTATIN 40 MG TAB PO SCH (20:26)
[2019-12-30] MEDS: LATANOPROST 0.005% OP SOLN 2.5 ML BTL OPB SCH (20:28)
[2019-12-31] MEDS: cefTRIAXone SODIUM 1,000 MG in DEXTROSE 5% 50 ML IV SCH (03:47)
[2019-12-31 06:05] LABS: Hematocrit (blood only) 35.4 % (42-52); Hemoglobin 11.8 g/dL (14.0-18.0); Mean Corpuscular Hemoglobin 31.2 pg (25-34); Mean Corpuscular Hgb Conc 33.3 g/dL (32-36); Mean Corpuscular Volume 93.7 fL (80-100); Mean Platelet Volume 9.9 fL (7.4-10.4); Platelet Count 220 K/uL (130-400); RDW Coefficient of Variation 13.1 % (11.5-14.5); RDW Standard Deviation 44.8 fL (36.4-46.3); Red Blood Count 3.78 M/uL (4.7-6.1)
[2019-12-31 06:44] LABS: BUN Creatinine Ratio 7.1 (10-20); Calcium 7.5 mg/dl (8.5-10.1); Creatinine Clr Calc Pharmacy 5.8 ml/min; Est GFR (African American) 5.6; Est GFR (Non-African American) 4.8; Potassium 4.5 mmol/L (3.5-5.1)
--- NOTE | 2019-12-31 07:46 | XRay Report ---
XR chest 1V portable CLINICAL HISTORY: 84 years-old Male presenting with crackles. TECHNIQUE: Portable upright AP view of the chest was obtained. COMPARISON: 12/29/2019 and 04/15/2019. FINDINGS: Atherosclerosis of the aortic arch. Cardiac silhouette top normal in size. Extensive interstitial pro minence with heterogeneous lung markings and scattered basilar predominant reticular and linear opaci ties. Trace effusion may be present on the right. Osseous structures normal. Upper abdomen normal. IMPRESSION: 1. Interstitial prominence is greater than on prior chest x-ray concerning for developing venolympha tic congestive change. Mild/developing pulmonary edema not excluded. Aspiration or infection also not excluded. Continued follow-up advised. ACT 112: Negative or not required by law. Electronically signed by: Marcos Burnham M.D. 12/31/2019 7:45 AM
[2019-12-31] MEDS: HEPARIN SOD 5,000 UNIT/0.5 ML VIAL SQ SCH (08:16)
[2019-12-31] MEDS: EZETIMIBE 10 MG TABLET PO SCH (08:16)
[2019-12-31] MEDS: ASPIRIN 81 MG ECTAB PO SCH (08:17)
[2019-12-31] MEDS: METOPROLOL SUCC 25MG EXT REL TAB PO SCH (08:17)
[2019-12-31] MEDS: INSULIN ASPART 100 UNITS/ML 3 ML PEN SC SCH (08:18)
--- NOTE | 2019-12-31 09:05 | 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 Note ---
Date of Service: December 31, 2019 Current Inpatient Medications Acetaminophen (Tylenol) 650 mg PO Q4H PRN PRN Reason: Pain or Fever Stop: 01/28/20 18:40 Aspirin (Ecotrin Ectab) 81 mg PO DAILY [place]IEGO Stop: 01/29/20 08:59 Last Admin: 12/31/19 08:17 Dose: 81 mg Documented by: Atorvastatin Calcium (Lipitor) 80 mg PO HS DIEGO Stop: 01/28/20 20:59 Last Admin: 12/30/19 20:26 Dose: 80 mg Documented by: Dextrose (Dextrose 50%) 25 - 50 ml IV UD PRN; Protocol PRN Reason: Hypoglycemia Protocol Stop: 01/28/20 18:40 Ezetimibe (Zetia) 10 mg PO DAILY DIEGO Stop: 01/29/20 08:59 Last Admin: 12/31/19 08:16 Dose: 10 mg Documented by: Glucagon (Glucagen) 1 mg SQ UD PRN; Protocol PRN Reason: Hypoglycemia Protocol Stop: 01/28/20 18:40 Glucose (Dex4 Glucose) 4 - 8 tabs PO UD PRN; Protocol PRN Reason: Hypoglycemia Protocol Stop: 01/28/20 18:40 Glucose (Glucose 40%) 15 - 30 gm PO UD PRN; Protocol PRN Reason: Hypoglycemia Protocol Stop: 01/28/20 18:40 Heparin Sodium (Porcine) (Heparin Sodium (Porcine)) 5,000 units SQ Q12 [place]IEGO Stop: 01/29/20 08:59 Last Admin: 12/31/19 08:16 Dose: 5,000 units Documented by: Ceftriaxone Sodium 1,000 mg/ (Dextrose) 60 mls @ 100 mls/hr IV Q24H [facility]; Protocol Stop: 01/09/20 03:59 Last Infusion: 12/31/19 04:32 Dose: Infused Documented by: Lactated Ringer's (Lr) 1,000 mls @ 125 mls/hr IV .Q8H [facility] Stop: 01/29/20 13:29 Last Infusion: 12/31/19 03:41 Dose: 0 mls/hr Documented by: Insulin Aspart (Novolog Flexpen) 0 units SC ACHS [place] Stop: 01/28/20 20:59 Last Admin: 12/31/19 08:18 Dose: 2 units Documented by: Latanoprost (Xalatan Oph) 1 drops OPB HS [facility] Stop: 01/28/20 20:59 Last Admin: 12/30/19 20:28 Dose: 1 drops Documented by: Metoprolol Succinate (Toprol Xl) 25 mg PO DAILY [place] Stop: 01/29/20 08:59 Last Admin: 12/31/19 08:17 Dose: 25 mg Documented by: Miscellaneous (Carbohydrates For Hypoglycemia) 15 - 30 gm PO UD PRN PRN Reason: Hypoglycemia Protocol Stop: 01/28/20 18:40 Nitroglycerin (Nitrostat) 0.4 mg SL UD PRN PRN Reason: CHEST PAIN Stop: 01/28/20 18:40 TRANSFER SUMMARY: 84-year-old man presented to the ER after outpatient lab work showed a worsening kidney function after a significant diarrheal illness during the prior week. He reported trying Imodium with no effect and was subsequently placed on Questran approximately one day prior to arrival. Diarrhea resolved after admission to the hospital and no stools were available for culture. Initial blood work revealed a normal CBC, a BMP revealing CO2 of 20, BUN 57 and creatinine 8.59. Magnesium was 1.6, troponin was negative, urinalysis was cloudy with 1+ protein, 3+ leukocyte esterase, > 30 WBC/hpf, > 30 epithelial cells/hpf and no bacteria. 1-5 granular casts were seen. He was started on normal saline at 125mls/hr and given approximately 4 L overnight with 160mLs urine output by 7 AM the next morning. He was not demonstrating evidence of volume overload and fluids were switched to LR to avoid worsening of the metabolic acidosis from hyperchloremic fluids. He received an additional 3.2 L overnight with 600mLs output the following 24 hours. On the morning of 12/30 labwork revealed a sodium of 138, chloride 113, CO2 15, BUN 65, creatinine 9.14, mag 2.0. Post void residuals on hospital day 2 were approximately 50 cc per nursing staff. This is increased by hospital day 3 to approximately 200 cc. The patient has known BPH. A renal ultrasound was performed on hospital day 1, revealing no evidence for hydronephrosis and an enlarged prostate with bladder wall thickening. Further urine studies included a urine osmole which was 261, urine creatinine random of 58.6, urine protein random of 48.7, urine sodium random 83, urine potassium random 7.6, urine chloride random 82. FENa was 8.1 consistent with ATN. A Murphy catheter was unable to be placed by nursing staff because of retracted foreskin. This was of less concern on hospital day 2 with low postvoid residuals and no evidence of hydronephrosis on imaging. However, Urology was consulted for Murphy placement on hospital day 3 just prior to departure for [place] with rising PVRs as above. At time of discharge he was mentating and ambulating at baseline and tolerating p.o. He was oxygenating well on room air with no subjective increased shortness of breath. Chest x-ray performed overnight when IV fluids were held revealed vascular congestion consistent with fluid overload. Lungs were clear to auscultation bilaterally on exam. Cardiac exam was normal with no evidence of edema or evidence of heart failure. He was transferred to [place] in stable condition as hemodialysis is not available at this facility. Furthermore, obtaining a hemodialysis catheter at this facility would also be a challenge over the weekend. The situation was discussed with his sister at his request and she agreed with the transfer. Primary care follow-up was recommended 1 week post discharge from the receiving facility. [facility] Dr[facility] dining car is Dr. Chambers. Of note, the case was also discussed with Dr. Kenton Funez, [facility] Increment Manager, who is in agreement with the transfer.
--- NOTE | 2019-12-31 09:23 | Discharge Summary ---
Date of Service December 31, 2019 Admission HPI Per Admitting Provider Pt is 84 y/o M with PMH CKD III, HTN, dyslipidemia, CAD, DM II, BPH, GERD presented to ER for abnormal renal functions. Patient with diarrhea x1 week. Reports had at least 3 to sometimes greater than 6 episodes diarrhea a day. He has had decreased oral intake. Was seen at PCPs office 12/27/2019 and patient was started on Questran twice daily and had outpatient labs with BUN: 30, Cr: 3.7, GFR 14. Patient had repeat labs today 12/29/2019 with BUN: 54, Cr: 8.4, GFR 5.3 and patient was referred to ER for further evaluation. Patient states that he did not have any diarrhea yesterday or today. States that yesterday he had a little ice tea, [place]. Today he had 1 can of diet soda and a half a cup of coffee. Had some lightheadedness this morning with standing. Patient states last week had some abdominal bloating and lower abdominal discomfort however that has since resolved. Reports that has been having decreased urination, patient unsure if he urinated today. Denies any vomiting, fever, chills. Denies any recent antibiotic use, recent travel, ill contacts. Has municipal water supply. Denies diaphoresis, hematochezia, melena, JARQUIN, syncope, vision changes, neck pain, CP, SOB, orthopnea, palpitations, cough, sore throat, choking, otalgia, rhinorrhea, paresthesias, weakness, extremity weakness, extremity edema, rashes, dysuria, hematuria. Admission Exam Per Admitting Provider General: no distress, WDWN Head: normocephalic, atraumatic Eyes: PERRL, EOM's intact, conjunctiva non-injected, anicteric ENT: normal inspection external ears, nose, mucous membranes dry Neck: supple, trachea midline, non-tender Lungs: clear, no respiratory distress, no wheezing/rhonchi/rales CV: RRR, no murmur, no pretibial edema Abd: normal BS, soft, non-tender Ext: no cyanosis, no calf tenderness Neuro: A&O x 3, no focal deficits noted, normal affect Skin: warm, dry Principal Diagnosis ATN NAGMA Discharge Exam CONSTITUTIONAL: WNWD, vitals as above, generally well-appearing EYES: normal conjunctivae, no scleral icterus ENT: external ear and nose normal, oropharynx clear RESPIRATORY: clear to auscultation bilaterally, no crackles, rales or wheezes, normal respiratory effort CARDIOVASCULAR: regular rate and rhythm, S1 and 2 heard without murmurs, gallops or rubs, no JVD, no peripheral edema GASTROINTESTINAL: normal bowel sounds, soft, nontender, nondistended MUSCULOSKELETAL: strength 5/5 throughout, head is normocephalic and atraumatic SKIN: warm and dry NEUROLOGIC: CN 2-12 grossly intact, no sensory deficit, normal cognition, normal speech, no gross focal deficits. PSYCHIATRIC: alert cooperative and oriented to person, place and time. Discharge Data Allergies Allergy/AdvReac Type Severity Reaction Status Date / Time No Known Allergies Allergy Verified 12/29/19 15:49 Consultations 12/29/19 16:25 ED Decision to Admit Stat 12/29/19 18:41 Consult Case Management - Discharge Planning Routine Consult Nephrology Routine 12/31/19 07:58 Consult Urology Stat 12/31/19 09:02 Burn CD for patient Stat Ordered Studies 12/29/19 17:17 US renal/blad retro comp Urgent Hospital Course (1) ATN (acute tubular necrosis): (2) Metabolic acidosis: (3) Diarrhea: (4) Type 2 diabetes mellitus: (5) BPH (benign prostatic hyperplasia): 84-year-old man presented to the ER after outpatient lab work showed a worsening kidney function after a significant diarrheal illness during the prior week. He reported trying Imodium with no effect and was subsequently placed on Questran approximately one day prior to arrival. Diarrhea resolved after admission to the hospital and no stools were available for culture. Initial blood work revealed a normal CBC, a BMP revealing CO2 of 20, BUN 57 and creatinine 8.59. Magnesium was 1.6, troponin was negative, urinalysis was cloudy with 1+ protein, 3+ leukocyte esterase, > 30 WBC/hpf, > 30 epithelial cells/hpf and no bacteria. 1-5 granular casts were seen. He was started on no rmal saline at 125mls/hr and given approximately 4 L overnight with 160mLs urine output by 7 AM the next morning. He was not demonstrating evidence of volume overload and fluids were switched to LR to avoid worsening of the metabolic acidosis from hyperchloremic fluids. He received an additional 3.2 L overnight with 600mLs output the following 24 hours. On the morning of 12/30 labwork revealed a sodium of 138, chloride 113, CO2 15, BUN 65, creatinine 9.14, mag 2.0. Post void residuals on hospital day 2 were approximately 50 cc per nursing staff. This is increased by hospital day 3 to approximately 200 cc. The patient has known BPH. A renal ultrasound was performed on hospital day 1, revealing no evidence for hydronephrosis and an enlarged prostate with bladder wall thickening. Further urine studies included a urine osmole which was 261, urine creatinine random of 58.6, urine protein random of 48.7, urine sodium random 83, urine potassium random 7.6, urine chloride random 82. FENa was 8.1 consistent with ATN. A Murphy catheter was unable to be placed by nursing staff because of retracted foreskin. This was of less concern on hospital day 2 with low postvoid residuals and no evidence of hydronephrosis on imaging. However, Urology was consulted for Murphy placement on hospital day 3 just prior to departure for [place] with rising PVRs as above. At time of discharge he was mentating and ambulating at baseline and tolerating p.o. He was oxygenating well on room air with no subjective increased shortness of breath. Chest x-ray performed overnight when IV fluids were held revealed vascular congestion consistent with fluid overload. Lungs were clear to auscultation bilaterally on exam. Cardiac exam was normal with no evidence of edema or evidence of heart failure. He was transferred to [place] in stable condition as hemodialysis is not available at this facility. Furthermore, obtaining a hemodialysis catheter at this facility would also be a challenge over the weekend. The situation was discussed with his sister at his request and she agreed with the transfer. Primary care follow-up was recommended 1 week post discharge from the receiving facility. Accepting hospitalist is Dr. Mary Barbosa and excepting manager photo is Dr. Chambers. Of note, the case was also discussed with Dr. Kenton Funez, [facility] Electrical Engineering Director, who is in agreement with the transfer. Total Time Total Time Spent Total Time Spent (In Minutes): 60 Total Time Includes: Examination of the Patient, Discharge Planning, Medication Reconciliation and 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 With Other Providers Discharge Plan Discharge Items Patient Disposition: Transfer Acute Care Hospital Reason For Visit: SEN Discharge Diagnosis: ATN Condition on Discharge: Fair Activity: Resume your previous activity Non-emergency contact: Primary Care Provider Call non-emergency contact if: you have any medication questions, your symptoms worsen, your pain is not controlled, your pain is worsening, your pain is unusual for you, your pain is concerning for you and you have a fever Follow-up/Referrals: Jono Rodriguez MD [Primary Care Provider] - Diet: Carb Consistent or DM2 and Low Potassium (2gm) Addtl Attending Provider Instructions: You are being transferred to [facility] in [place] for further treatment of your acute kidney failure. It is recommended that you follow-up with your primary care physician within one week of discharge from this facility. It was a pleasure taking care of you! Please call if you have any questions or problems. You can reach a [facility] hospitalist on duty at [facility] 24 hours a day by calling [phone]. Take care of yourself. Ada Jones, DO [facility]ist Pending Studies at Discharge: Yes Studies:: Urine culture, negative at time of discharge. Stand-Alone Forms: My [facility] Skilled Items Patient informed of condition?: Yes DNR: No Discharge Level of Care: Other Communicable Disease: No Discharge Prognosis: Stable Lines: None Urinary Catheter: Yes Medications and DC Order Prescriptions: Continued latanoprost 0.005 % drops 1 drp OPB HS RF: 0 atorvastatin 80 mg tablet 80 mg PO HS RF: 0 aspirin [Aspirin Low Dose] 81 mg Tablet,Delayed Release (Dr/Ec) 81 mg PO DAILY RF: 0 tamsulosin 0.4 mg capsule 0.4 mg PO DAILY RF: 0 dorzolamide-timolol 22.3-6.8 mg/mL drops 1 drp OPB BID RF: 0 lisinopril 5 mg tablet 5 mg PO PM RF: 0 gabapentin 100 mg capsule 300 mg PO HS RF: 0 metoprolol succinate 25 mg tablet extended release 24 hr 25 mg PO DAILY RF: 0 Centrum Silver 400-250 mcg Tablet,Chewable 1 tab PO DAILY RF: 0 omeprazole 20 mg capsule,delayed release(DR/EC) 20 mg PO DAILY RF: 0 ezetimibe 10 mg tablet 10 mg PO DAILY RF: 0 nitroglycerin 0.4 mg tablet, sublingual 0.4 mg sublingual UD RF: 0 Discontinued metformin 500 mg tablet 1,000 mg PO QAM RF: 0 metformin 500 mg Tablet 500 mg PO QPM RF: 0 cholestyramine (with sugar) 4 gram powder in packet 4 g PO BID RF: 0 Discharge Orders: Discharge Order (Routine); Ordered 12/31/19 Ordered By: Ada Kunz/Other Patient Handouts: Diabetes Type 2 Managing Admission Data Admit Date/Time: 12/29/19 17:22 Attending Provider: Ada Jones Admit Provider: Driss Scott Primary Care Provider: Jono Rodriguez Other Providers: Driss Scott ; Terrence John ; Tor Barbosa
--- NOTE | 2019-12-31 10:28 | Urology Consultation ---
Date of Consultation December 31, 2019 Assessment & Plan (1) SEN (acute kidney injury): (2) BPH (benign prostatic hyperplasia): Pino in place. 16-F. Phimosis tight but able to pass pino w/o dilation. Would rec leaving pino in place until SEN improves so that I & Os can be accurately documented. Can f/u as outpatient for discussion of BPH and treatment options for phimosis. History of Present Illness Attending Physician: Ada Jones, DO 84 y/o Male with SEN with Cr of 8. Hx of BPH. Uncirc foreskin. He was voiding small amounts on his own. Initially PVR was 50, then increased to 200 with suprapubic discomfort. Attempts were made at placing a pino for accurate I & Os but this was not successful due to phimosis. Urology then consulted. Pt was not having any issues with foreskin until a few years ago when it started to close up. He has been able to void reasonably well up to this point. Slower stream. Incomplete emtpying. No hem. No dys. Nocturia x3-4. RADHA done recently showed BPH. No hydro. Allergies Allergy/AdvReac Type Severity Reaction Status Date / Time No Known Allergies Allergy Verified 12/29/19 15:49 Home Medications Home Medications Medication Instructions Recorded Confirmed Type aspirin [Aspirin Low Dose] 81 mg PO DAILY 04/15/19 12/29/19 History atorvastatin 80 mg PO HS 04/15/19 12/29/19 History dorzolamide-timolol 1 drp OPB BID 04/15/19 12/29/19 History gabapentin 300 mg PO HS 04/15/19 12/29/19 History latanoprost 1 drp OPB HS 04/15/19 12/29/19 History lisinopril 5 mg PO PM 04/15/19 12/29/19 History metformin 1,000 mg PO QAM 04/15/19 12/29/19 History metoprolol succinate 25 mg PO DAILY 04/15/19 12/29/19 History [id number] acid-lutein [Centrum 1 tab PO DAILY 04/15/19 12/29/19 History Silver] tamsulosin 0.4 mg PO DAILY 04/15/19 12/29/19 History cholestyramine (with sugar) 4 g PO BID 12/29/19 12/29/19 History ezetimibe 10 mg PO DAILY 12/29/19 12/29/19 History metformin 500 mg PO QPM 12/29/19 12/29/19 History nitroglycerin 0.4 mg SUBLINGUAL UD 12/29/19 12/29/19 History omeprazole 20 mg PO DAILY 12/29/19 12/29/19 History Patient History Medical History (Updated 12/31/19 @ 09:27 by Ada Jones, DO) ASCVD (arteriosclerotic cardiovascular disease) BPH (benign prostatic hyperplasia) Chronic rhinitis (Chronic) CKD (chronic kidney disease), stage III Dyslipidemia GERD (gastroesophageal reflux disease) HTN (hypertension) [place] (myocardial infarction) Type 2 diabetes mellitus Surgical History (Updated 12/29/19 @ 17:59 by Carlita Salguero PA-C) History of angioplasty History of cataract surgery History of cholecystectomy Hx of tonsillectomy Family History (Updated 12/29/19 @ 18:00 by Carlita Salguero PA-C) Other Coronary heart disease Diabetes Social History (Updated 12/29/19 @ 18:00 by Carlita Salguero PA-C) Preferred Language: Bengali 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 Ability: Effective 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 Naphthalene Required: No Beliefs That Will Affect Care: None Current Living Situation: Other Current Living Situation Comment: lives with sister Other Information That Helps Us Care for You: No Feels Safe at Home: Yes Safety Concerns: Feels Safe At This Time Smoking Status: Former smoker Do You Dip or Chew Tobacco: No ; Second Hand Exposure: No ; Tobacco Cessation Education Requested by Patient: No Hx Alcohol Use: No Hx Substance Use: No Review of Systems Review of Systems: All systems reviewed & are unremarkable except as noted in HPI & below Physical Exam Constitutional: WD/WN, vitals as above Eyes: PERRL, conjunctivae normal, anicteric sclerae Cardiovascular: RRR, no murmur, no edema Gastrointestinal (Abdomen): normal bowel sounds, soft, nontender, no hepatosplenomegaly Skin: no rashes, warm and dry Neurologic: patellar DTR's 2+ bilat, sensation intact Genitourinary: + phimosis Lymphatic: no cervical or axillary lymphadenopathy Results & Data Vital Signs (Past 12 Hours) Vital Signs Temp Pulse Pulse Resp BP Pulse Ox 12/31/19 07:31 68 12/31/19 07:13 36.2 C L 74 18 126/71 93 12/31/19 05:24 72 12/31/19 03:49 36.4 C L 70 20 134/80 94 12/30/19 23:00 36.4 C L 72 20 128/70 91
== END 2019-12-31 11:09 | disposition short-term general hospital (02) | DRG 682 ==
LOC: ED 15:01 → SUATTDRO 17:22 → 2W 17:22